=== PATIENT | female | born 1970 | race Caucasian/White ===

== ENCOUNTER → 2018-04-13 22:40 | Outpatient (CLI) | payer OTHER, SELFPAY ==
[2018-04-13 19:22] VITALS: BMI 35.0
[2018-04-13 22:56] LABS: Absolute Lymphocyte Count 4.07 X10^3/ul (0.83-4.51); Absolute Neutrophil Count 5.2 X10^3/uL (2.0-7.7); Basophil# 0.04 X10^3/uL; Basophil% 0.4 % (0-1); Hematocrit 41.1 % (37-47); Hemoglobin 13.4 g/dl (12.0-15.0); Lymphocyte # 4.07 X10^3/ul (4.0); Lymphocyte % 39.9 % (19-41); Mean Corp Hgb Conc 32.6 g/gl (32-36); Mean Corpuscular Hgb 29.5 pg (27.0-32.0); Mean Corpuscular Volume 90.3 fL (81-99); Monocyte# 0.69 X10^3/uL; Monocyte% 6.8 % (0-10); Neutrophil # 5.19 X10^3/uL (2.7-7.7); Neutrophil % 50.7 % (47-70); Platelet Count 333 K/mm3 (150-450); RBC Distribution Width CV 13.5 % (11.6-14.6); RBC Distribution Width SD 44.1 fl (35.1-43.9); Red Blood Count 4.55 M/mm3 (4.2-5.4); White Blood Count 10.2 K/mm3 (4.4-11.0)
[2018-04-13 23:02] LABS: POSITIVE COUNT NO; POSITIVE DIFFERENTIAL NO; POSITIVE MORPHOLOGY NO
[2018-04-13 23:22] LABS: ALB/GLOB Ratio 0.8 RATIO (0.9-2.4); AST(SGOT) 15 U/L (15-37); Alanine Aminotransfer ALT/SGPT 35 U/L (13-56); Albumin, Serum 3.6 g/dL (3.2-5.0); Alkaline Phosphatase 68 U/L (45-117); Anion Gap 6 (5-15); BUN 14 mg/dL (7-18); BUN/Creat Ratio 17.7 RATIO (10-20); Calcium,Total 8.8 mg/dL (8.5-10.1); Chloride 101 mmol/L (98-107); Cholesterol 224 mg/dL (200); Creatinine, Serum 0.79 mg/dL (0.55-1.02); EST Glomerular Filtration Rate 81 mL/min (>60); Est Glom Filt Rate - Afr Amer 99 mL/min (>60); Globulin 4.7 g/dL (2.2-4.2); Glucose 88 mg/dL (74-106); High Density Lipoprotein 38 mg/dL; Potassium 3.9 mmol/L (3.5-5.1); Protein, Total 8.3 g/dL (6.4-8.2); Sodium Level 135 mmol/L (136-145); Triglycerides 398 mg/dL; Very Low Density Lipoprotein 80 mg/dL (5-40)
--- OUTSIDE RECORDS SUMMARY | 2018-06-09 10:36 | XMS RPT_ITS ---
:1970 Author Organization OHIP Care Team Providers Name Role Phone Brooklynn Craft SUBWAY REPAIR SUPERVISOR-C Attending Unavailable Brooklynn Craft SUBWAY REPAIR SUPERVISOR-C Referring Unavailable Brooklynn Craft SUBWAY REPAIR SUPERVISOR-C Attending Unavailable Brooklynn Carft SUBWAY REPAIR SUPERVISOR-C Primary Care Unavailable Brooklynn Craft SUBWAY REPAIR SUPERVISOR-C Referring Unavailable PROBLEMS PROBLEMS DATE TYPE CONDITION / CODE ATTENDING STATUS SOURCE 05/03/2018 Unknown N30.90 - Cystitis, Craft, Active Calypso unspecified Brooklynn SUBWAY REPAIR SUPERVISOR-C [facility] / N30.90(ICD-10) Repository 04/14/2018 Unknown I10 - Essential Craft, Active Calypso (primary) Brooklynn SUBWAY REPAIR SUPERVISOR-C [facility] hypertension / Hospital I10(ICD-10) Repository PROCEDURES PROCEDURES No Procedure Records FoundRESULTS RESULTS OFFICE VISIT Observed: 04/30/2018 Status: F Source: [place] 5:13 PM [facility] REPOSITORY After Hours [facility] [address] [place] [address] OFFICE VISIT Date of Service: 04/30/18 MR#: [id number] Acct: [id number] Name: TRAY HUNTER Rep #: [id number] : 1970 Provider: RAMONE Craft Age/Sex: 48/F Location: [facility] Status: Signed Intake Vital Signs04/30/18 Height 5 ft 3 in 04/30/18 Weight: 198 lb Intake Visit Reasons: Urinary tract infection Allergies cephalexin monohydrate [From Keflex] Allergy (Verified 08/31/14 12:04) Itching pantoprazole sodium [From Protonix] Allergy (Verified 08/31/14 12:04) Swelling Medications magnesium 250 mg tablet 250 mg PO DAILY 04/13/18 [History Confirmed 04/13/18] valsartan 160 mg-hydrochlorothiazide 12.5 mg tablet 1 tab PO DAILY #90 tab 04/13/18 [Rx Confirmed 04/13/18] ciprofloxacin 500 mg tablet 500 mg PO BID #14 tab 04/30/18 [Rx Confirmed 04/30/18] PFSH Medical History Edema of both legs (Acute) Elevated BP without diagnosis of hypertension (Acute) Rosacea (Acute) Stasis dermatitis (Acute) T. I (Acute) endoscopy [id number] inflammation (Acute) multi nodular goiter (Acute) Surgical History History of bilateral tubal ligation (Acute) History of cholecystectomy (Acute) endoscopy 2008 (Acute) Family History Other Asthma Diabetes Heart disease Social History Smoking Status: Never smoker HPI HPI (General) HPI HPI: TRAY HUNTER, is a 48 F who presents to the office today for burning when laying down. Since Thu and worsening now Drinking lots of fluids ROS Genitourinary: Positive for burning urination, urinary frequency, Frequent nighttime urination/ nocturia, suprapubic fullness and post void dribbling Exam Const Constitutional: Yes cooperative, Yes healthy appearing Orientation: Yes alert, awake and oriented x3 Resp Effort AND Inspection: Yes normal respiratory effort Auscultation: Yes clear to auscultation bilaterally Cardio Palpitation: Yes normal PMI Rate: Yes regular rate Rhythm: Yes regular rhythm GI Inspection: Yes normal to inspection Auscultation: Yes normal bowel sounds Musc Cervical Spine: Yes cervical ROM normal Thoracic/Lumbar Spine: Yes thoracic and lumbar spine normal to inspection Skin General: no rashes or lesions noted Lesions: Yes no lesions Extrem General: Yes normal to inspection Neuro General: Yes alert and oriented x3 Psych Appearance: Positive grossly normal Mood: Positive congruent mood Affect: Positive normal affect Results [facility] Office Urine Color Yellow Last Edit by MEETA Devine on 04/30/18 17:11 Assessment AND Plan Problems 1. Dysuria R30.0 2. Cystitis N30.90 Patient Instructions Take the antibiotics till gone push the fluids cystex 1 2 x a day for 4 day Orders Orders: Medications New: Coding Level of Care Code Off vis,est,level 3 Diagnoses Dysuria R30.0 Cystitis N30.90 04/30/18 1713 <Electronically signed by Brooklynn TIM> Date Brooklynn TIM CC: Observed: 04/30/2018 Status: F Source: [place] CULTURE, URINE 4:05 PM [facility] REPOSITORY Urine Culture ORGANISM 1: Escherichia coli [place] Count >100,000 Escherichia coli: REACTION Amoxacillin/Clavulanic Acid $ 8 S Ampicillin $ >=32 R Ampicillin/Sulbactam $ 16 I Cefazolin $ <=4 S Cefepime $ <=1 S Ceftriaxone $ <=1 S Ciprofloxacin $ <=0.25 S ESBL - Ertapenim $$$ <=0.5 S Gentamicin $ <=1 S Imipenem *NF <=0.25 S Levofloxacin $ <=0.12 S Nitrofurantoin $ 64 I Piperacillin/Tazobactam $$ <=4 S Tobramycin $ <=1 S Trimethoprim/Sulfametho $ <=20 S (NF) indicates non-formulary drug at [facility]. Approval by Infectious Disease Specialist required before non-formulary drugs may be ordered and/or dispensed. Performed By: #### M100.0650 #### [facility] [place], [address] OFFICE VISIT Observed: 04/14/2018 Status: F Source: [place] 12:39 PM [facility] REPOSITORY After Hours Family [facility] [address] [place] [address] OFFICE VISIT Date of Service: 04/13/18 MR#: [id number] Acct: [id number] Name: TRAY HUNTER Rep #: [id number] : 1970 Provider: RAMONE Craft Age/Sex: 48/F Location: [facility] Status: Signed Intake Vital Signs04/13/18 Height 5 ft 3 in 04/13/18 Weight: 198 lb Intake Visit Reasons: RX REFILL Allergies cephalexin monohydrate [From Keflex] Allergy (Verified 08/31/14 12:04) Itching pantoprazole sodium [From Protonix] Allergy (Verified 08/31/14 12:04) Swelling Medications magnesium 250 mg tablet 250 mg PO DAILY 04/13/18 [History Confirmed 04/13/18] valsartan 160 mg-hydrochlorothiazide 12.5 mg tablet 1 tab PO DAILY #90 tab 04/13/18 [Rx Confirmed 04/13/18] PFSH Medical History Edema of both legs (Acute) Elevated BP without diagnosis of hypertension (Acute) Rosacea (Acute) Stasis dermatitis (Acute) T. I (Acute) endoscopy [id number] inflammation (Acute) multi nodular goiter (Acute) Surgical History History of bilateral tubal ligation (Acute) History of cholecystectomy (Acute) endoscopy 2008 (Acute) Family History Other Asthma Diabetes Heart disease Social History Smoking Status: Never smoker HPI HPI (General) HPI HPI: TRAY HUNTER, is a 48 F who presents to the office today for medication refills and labs ROS Const Constitutional: No anorexia, body ache, chills, excessive sweating, fatigue, fever(s), frequent falls, headache(s), decreased energy, malaise, night sweats, snoring, weakness, weight change, sleep problems, abnormal sleep pattern, change in appetite or other Eyes Eyes: No blurry vision, change in vision, double vision, discharge, dry eyes, bulging eyes, floaters, visual disturbances, eye pain, light sensitivity, spots in vision, tunnel vision or other ENT ENT: No headache(s), abnormal hearing, ear pain, ear discharge, ear pressure, hearing loss, tinnitus, dizziness/vertigo, balance problems, nosebleed/epistaxis, nasal congestion, nasal obstruction, nose pain, sinus pressure, sinus pain, nasal discharge, post nasal drip, facial pain, dental pain, dry mouth, difficulty swallowing, bad breath, hoarseness, lip swelling, mouth lesions, mouth pain, neck pain, sore throat, tongue swelling, throat swelling or other Resp Respiratory: No snoring, cough, change in phlegm color, chest congestion, excessive phlegm production, hemoptysis, pain on inspiration, shortness of breath, pain with cough, stridor, wheezing or other Cardio Cardiology: No excessive sweating, chest pain at rest, chest pain with exertion, leg pain with exertion, shortness of breath, dyspnea on exertion, generalized swelling, irregular heart rhythm, lightheadedness, orthopnea, radiating jaw, neck or arm pain, fast heart rate, slow heart rate, palpitations or other Gastro GI: No other, No Difficulty Swallowing, No abdominal pain, No belching, No bloating, No change in bowel habits, No change in stool character, No coffee ground emesis, No constipation, No cramping, No diarrhea, No heartburn, No feeling full early, No excessive flatus, No incontinent of stools, No Vomiting blood/hematemesis, No Blood in stool, No loose stools, No Black,tarry stools, No nausea/dyspepsia, No pain with swallowing, No vomiting, No hemorrhoids, No rectal pain Genitourinary: No urinary frequency, difficulty urinating, burning urination, painful urination, urinary urgency or blood in urine Musc Musculoskeletal: No neck pain, abnormal walking, joint pain, back pain, deformity, joint swelling, limited range of motion, loss of height, muscle cramps, muscle weakness, decreased muscle mass, body aches, numbness, radiating pain into limb, stiffness, tingling or other Skin Skin: No acne, hair loss, change in hair, nail changes, boil, change in skin color, dry skin, redness, excessive hair growth, yellowing of the skin, lesions, itching, rash, skin pain, skin ulcer, sores, skin swelling, wounds or other Breast Breast: No other Neuro Neurology: No frequent falls, headache(s), weakness, visual disturbances, abnormal hearing, abnormal walking, numbness, tingling, abnormal movements, abnormal speech, behavioral changes, confusion, unsteady gait/balance, dizziness, lack of coordination, loss of vision, memory loss, restless legs, fainting, tremor(s) or other Psych Psychiatric: No abnormal sleep pattern, No change in appetite, No behavioral changes, No confusion, No memory loss, No lack of enjoyment, No anxiety, No depression, No difficulty concentrating, No hopelessness, No irritability, No mood swings, No panic attacks, No paranoia, No Thoughts of harming yourself/Others, No hallucinations, No other Endo Endo: No excessive sweating, No fatigue, No other Aller/Imm Allergy/Immunologic: No lip swelling, tongue swelling, throat swelling, wheezing or itchy eyes Exam Const Constitutional: Yes cooperative, Yes healthy appearing Orientation: Yes alert, awake and oriented x3 HENMT Head: Yes normocephalic Ear: Yes hearing grossly normal bilaterally Neck Neck: normal visual inspection Thyroid: thyroid normal Eyes General: Yes appearance normal, both eyes and all related structures Chest Chest palpation AND inspection: Yes normal inspection of the chest Resp Effort AND Inspection: No stridor Auscultation: Yes clear to auscultation bilaterally Cardio Palpitation: Yes normal PMI Rate: Yes regular rate Rhythm: Yes regular rhythm GI Inspection: Yes normal to inspection Auscultation: Yes normal bowel sounds Rectal Exam: No hemorrhoids Musc Cervical Spine: Yes cervical ROM normal Thoracic/Lumbar Spine: Yes thoracic and lumbar spine normal to inspection Skin General: no rashes or lesions noted Lesions: Yes no lesions Extrem General: Yes normal to inspection Neuro General: Yes alert and oriented x3 Motor: No weakness Psych Appearance: Positive grossly normal Mood: Positive congruent mood Affect: Positive normal affect Assessment AND Plan Problems 1. Essential hypertension I10 2. Rosacea L71.9 Orders Orders: Medications New: Coding Level of Care Code Off vis,est,level 3 Diagnoses Essential hypertension I10 Hypertension type: essential hypertension Chasity L71.9 04/14/18 1239 <Electronically signed by Brooklynn TIM> Date Brooklynn TIM CC: CBC W/DIFF, AUTOMATED Collected: 04/13/2018 Status: F Source: [place] 8:10 PM [facility] REPOSITORY TYPE CODE TESTS RESULT OUT OF RANGE REFERENCE UNITS LAB L100.1000 4.4-11.0 K/mm3 Normal WBC 10.2 LAB L100.1200 4.2-5.4 M/mm3 Normal RBC 4.55 LAB L100.1300 12.0-15.0 g/dl Normal HGB 13.4 LAB L100.1400 37-47 % Normal HCT 41.1 LAB L100.1500 81-99 fL Normal MCV 90.3 LAB L100.1600 27.0-32.0 pg Normal MCH 29.5 LAB L100.1700 32-36 g/gl Normal MCHC 32.6 LAB L100.1810 11.6-14.6 % Normal RDW CV 13.5 LAB L100.1820 35.1-43.9 fl High RDW SD 44.1 LAB L100.1900 150-450 K/mm3 Normal PLT 333 LAB L100.2000 6.2-12.0 fl Normal MPV 9.0 LAB L100.2100 47-70 % Normal NEUT% 50.7 LAB L100.2200 19-41 % Normal LY% 39.9 LAB L100.2300 0-10 % Normal MONO% 6.8 LAB L100.2400 0-5 % Normal EO% 2.0 LAB L100.2500 0-1 % Normal BASO% 0.4 LAB L100.2550 0.0-0.9 % Normal IM GRAN % 0.200 Result Comment: IG% - Immature Granulocytes (promyelocytes, myelocytes and metamyelocytes) > 1% indicates that a LEFT SHIFT is Present. LAB L100.2620 2.0-7.7 X10 3/uL Normal Absolute Neut 5.2 LAB L100.2720 0.83-4.51 X10 3/ul Normal Absolute Lymph 4.07 Performed By: #### L100.0100, L500.4050, L500.4100 #### [facility] [address] [place], [address] COMPREHENSIVE METABOLIC Collected: 04/13/2018 Status: F Source: [place] [facility] 8:10 PM [facility] REPOSITORY TYPE CODE TESTS RESULT OUT OF RANGE REFERENCE UNITS LAB L501.0100 74-106 mg/dL Normal GLU 88 Result Comment: Please note revised GLUCOSE reference range effective 2017. LAB L501.1000 7-18 mg/dL Normal BUN 14 LAB L501.1100 0.55-1.02 mg/dL Normal CREAT,SERUM 0.79 Result Comment: The validity of the calculated GFR AND GFRAA in patients over 70 years has not been determined. Clinical correlation is essential. LAB L501.1110 >60 mL/min Normal EST GFR 81 Result Comment: Non- GFR Calc LAB L501.1115 >60 mL/min Normal EST GFR - AA 99 Result Comment: GFR Calc LAB L501.1300 10-20 RATIO Normal BUN/CRE 17.7 LAB L501.1500 6.4-8.2 g/dL High T PROT 8.3 LAB L501.1800 3.2-5.0 g/dL Normal ALB 3.6 LAB L501.1950 2.2-4.2 g/dL High GLOB 4.7 LAB L501.2000 0.9-2.4 RATIO Low A/G 0.8 LAB L501.2200 8.5-10.1 mg/dL CA Normal 8.8 LAB L501.4100 15-37 U/L Normal AST 15 LAB L501.4305 45-117 U/L Normal ALK P 68 LAB L501.4405 13-56 U/L Normal ALT 35 LAB L501.4600 0.20-1.00 mg/dL T Normal BILI 0.40 LAB L501.5300 136-145 mmol/L Low NA 135 LAB L501.5600 3.5-5.1 mmol/L K Normal 3.9 LAB L501.5900 98-107 mmol/L CL Normal 101 LAB L501.6100 21.0-32.0 mmol/L Normal CO2 28.0 LAB L501.6200 5-15 Normal GAP 6 Performed By: #### L100.0100, L500.4050, L500.4100 #### [facility] [address] [place], [place], [address] LIPID PROFILE Collected: 04/13/2018 Status: F Source: [place] 8:10 PM [facility] REPOSITORY TYPE CODE TESTS RESULT OUT OF RANGE REFERENCE UNITS LAB L501.4900 200 mg/dL High CHOL 224 Result Comment: <200 mg/dL Desirable 200-240 mg/dL Borderline >240 mg/dL High Risk LAB L501.5000 mg/dL High TRIG 398 Result Comment: The drugs N-Acetylcysteine and Metamizole may falsely depress this assay. Serum Triglycerides Reference Interval Normal <150 mg/dL Borderline high 150 - 199 mg/dL High 200 - 499 mg/dL Very High > or = 500 mg/dL LAB L501.6400 mg/dL Low HDL 38 Result Comment: The drugs N-Acetylcysteine and Metamizole may falsely depress this assay. Reference Range HDL <40 mg/dL Low HDL Cholesterol HDL >or= 60 mg/dL High HDL Cholesterol LAB L501.6500 0-130 mg/dL Normal LDL 106 LAB L501.6600 5-40 mg/dL High VLDL 80 Performed By: #### L100.0100, L500.4050, L500.4100 #### [facility] [address] [place], [place], [address] ALLERGIES ALLERGIES DATE TYPE / CODE NAME / CODE REACTION SEVERITY SOURCE 08/31/2014 Drug cephalexin Itching Unknown Calypso Allergy/416 monohydrate/[id number] Formerly [facility] 504111([facility] 830(RXNORM) [facility] ED CT) Repository 08/31/2014 Drug pantoprazole Swelling Unknown Cresencio Allergy/416 sodium/[id number](R Formerly [facility] 895742(SNOM XNORM) [facility] ED CT) Repository ENCOUNTERS ENCOUNTERS ADMIT/DISCHARGE ACCOUNT ADMITTING ENCOUNTER LOCATION SOURCE NUMBER CLASS 04/30/2018 [id number] Ambulatory Calypso Cresencio 0 [facility] ing:LABSPEC Repository 04/13/2018 [id number] Ambulatory Cresencio Calypso 9 [facility] ing:LABSPEC Repository PAYERS PAYERS ENCOUNTER GUARANTOR PAYER SUBSCRIBER SOURCE 04/30/2018 ANI [id number] Insurance:RO ABRAHAMB: [facility] RICARDA chapman Number: [id number], [place] [id number] Repository [address]Qpf: [phone]) Date:7959-03-15[phone] () 1397CD. DEJON GARCIA [id number]: 04/30/2018 Secondary NOT GIVENUNK Cresencio Insurance:SELF PAY [facility]: Effective Repository Date:2018-04-30 04/13/2018 ANI Ramos Primary ANI Dupont [id number] [facility] Number: [id number], [place] [id number] Repository [address]Hqe: ([phone]) Date:9804-01-15TB [phone] () 3673MT. DEJON GARCIA [id number]: 04/13/2018 Secondary NOT GIVENUNK Cresencio Insurance:SELF PAY [facility] Number: Effective Repository Date:2018-04-13
== END ==
PROVIDERS: Referring Provider Nurse Practitioner; Visit Provider Nurse Practitioner
DX: I10 Essential (primary) hypertension (principal)
CPT/HCPCS: 80053; 80061; 85025

== ENCOUNTER → 2018-04-30 21:09 | Outpatient (CLI) | payer OTHER, SELFPAY ==
[2018-04-30 15:47] VITALS: BMI 35.0
--- OUTSIDE RECORDS SUMMARY | 2018-08-04 07:52 | XMS RPT_ITS ---
:1970 Author Organization OHIP Care Team Providers Name Role Phone Brooklynn Craft BIOMEDICAL MANAGER-C Attending Unavailable Brooklynn Craft BIOMEDICAL MANAGER-C Referring Unavailable Brooklynn Craft BIOMEDICAL MANAGER-C Attending Unavailable Brooklynn Craft BIOMEDICAL MANAGER-C Primary Care Unavailable Brooklynn Craft BIOMEDICAL MANAGER-C Referring Unavailable PROBLEMS PROBLEMS DATE TYPE CONDITION / CODE ATTENDING STATUS SOURCE 05/03/2018 Unknown N30.90 - Cystitis, Craft, Active Cresencio unspecified Brooklynn BIOMEDICAL MANAGER-C [facility] / N30.90(ICD-10) Repository 04/14/2018 Unknown I10 - Essential Craft, Active [place] (primary) Brooklynn BIOMEDICAL MANAGER-C Community hypertension / Hospital I10(ICD-10) Repository PROCEDURES PROCEDURES No Procedure Records FoundRESULTS RESULTS OFFICE VISIT Observed: 04/30/2018 Status: F Source: [place] 5:13 PM [facility] REPOSITORY After Hours [facility] [address] [place] [address] OFFICE VISIT Date of Service: 04/30/18 MR#: [id number] Acct: [id number] Name: TRAY HUNTER Rep #: [id number] : 1970 Provider: RAMONE Craft Age/Sex: 48/F Location: [facility] Status: Signed Intake Vital Signs04/30/18 Height 5 [...] Stasis dermatitis (Acute) T. I (Acute) endoscopy 6449-0075 inflammation (Acute) multi nodular goiter (Acute) Surgical [...] congruent mood Affect: Positive normal affect Results [facility] Office Urine Color Yellow Last Edit by [...] TIM CC: Observed: 04/30/2018 Status: F Source: [place] CULTURE, URINE 4:05 PM [facility] REPOSITORY Urine Culture ORGANISM 1: Escherichia coli [place] Count >100,000 Escherichia coli: REACTION Amoxacillin/Clavulanic Acid [...] <=20 S (NF) indicates non-formulary drug at [facility]. Approval by Infectious Disease Specialist required before non-formulary drugs may be ordered and/or dispensed. Performed By: #### M100.0650 #### [facility] [place], [address] OFFICE VISIT Observed: 04/14/2018 Status: F Source: [place] 12:39 PM [facility] REPOSITORY After Hours Family [facility] [address] [place] [address] OFFICE VISIT Date of Service: 04/13/18 MR#: [id number] Acct: [id number] Name: TRAY HUNTER Rep #: [id number] : 1970 Provider: RAMONE Craft Age/Sex: 48/F Location: [facility] Status: Signed Intake Vital Signs04/13/18 Height 5 [...] Stasis dermatitis (Acute) T. I (Acute) endoscopy 3383-6742 inflammation (Acute) multi nodular goiter (Acute) Surgical [...] 04/13/2018 Status: F Source: [place] 8:10 PM [facility] REPOSITORY TYPE CODE TESTS RESULT OUT OF [...] Performed By: #### L100.0100, L500.4050, L500.4100 #### [facility] [address] [place], [address] COMPREHENSIVE METABOLIC Collected: 04/13/2018 Status: F Source: [place] [facility] 8:10 PM [facility] REPOSITORY TYPE CODE TESTS RESULT OUT OF [...] Performed By: #### L100.0100, L500.4050, L500.4100 #### [facility] [address] [place], [place], [address] LIPID PROFILE Collected: 04/13/2018 Status: F Source: [place] 8:10 PM [facility] REPOSITORY TYPE CODE TESTS RESULT OUT OF [...] Performed By: #### L100.0100, L500.4050, L500.4100 #### [facility] [address] [place], [place], [address] ALLERGIES ALLERGIES DATE TYPE / CODE NAME / CODE REACTION SEVERITY SOURCE 08/31/2014 Drug cephalexin Itching Unknown [place] Allergy/416 monohydrate/[id number] Formerly [facility] 606263([facility] 830(RXNORM) [facility] ED CT) Repository 08/31/2014 Drug pantoprazole Swelling Unknown [place] Allergy/416 sodium/[id number](R [facility] 744382(SNOM XNORM) [facility] ED CT) Repository ENCOUNTERS ENCOUNTERS ADMIT/DISCHARGE ACCOUNT ADMITTING ENCOUNTER LOCATION SOURCE NUMBER CLASS 04/30/2018 [id number] Ambulatory Cresencio [place] 0 [facility] ing:LABSPEC Repository 04/13/2018 [id number] Ambulatory [place] Cresencio 9 [facility] ing:LABSPEC Repository PAYERS PAYERS ENCOUNTER GUARANTOR PAYER SUBSCRIBER SOURCE 04/30/2018 ANI [id number] Insurance:RO ABRAHAMB: [facility] RICARDA chapman Number: [id number] [id number] Repository 8[address]Fsp: [phone]) Date:2256-99-76DV [phone] () [address] DEJON GARCIA [id number]: 04/30/2018 Secondary NOT GIVENUNK Cresencio Insurance:SELF PAY [facility] Number: Effective Repository Date:2018-04-30 04/13/2018 ANI Ramos Primary ANI Dupont [id number] [facility] Number: [id number], [place] [id number] Repository [address]Ftn: [phone]) Date:6530-94-32[phone] () [address]MT. DEJON GARCIA [id number]: 04/13/2018 Secondary NOT GIVENUNK [place] Insurance:SELF PAY [facility] Number: Effective Repository Date:2018-04-13
== END ==
PROVIDERS: Referring Provider Nurse Practitioner; Visit Provider Nurse Practitioner
DX: N30.90 Cystitis, unspecified without hematuria (principal); R30.0 Dysuria
CPT/HCPCS: 87077; 87086; 87088; 87186

== ENCOUNTER → 2018-09-21 | Outpatient (CLI) | payer OTHER, SELFPAY ==
[2018-04-30 15:47] VITALS: BMI 35.0
[2018-09-24 13:03] LABS: HPV Reflexed? NOT INDICATED
== END | disposition home or self-care (01) ==
LOC: LABSPEC 10:22
PROVIDERS: Visit Provider Obstetrics & Gynecology
DX: Z12.4 Encounter for screening for malignant neoplasm of cervix (principal)
CPT/HCPCS: 88175; G0145

== ENCOUNTER → 2018-10-14 | Outpatient (CLI) | payer OTHER, SELFPAY ==
[2018-04-30 15:47] VITALS: BMI 35.0
--- NOTE | 2018-10-14 08:44 | BI_ITS ---
MAMMOGRAPHY - BILATERAL SCREENING REASON FOR EXAM: Female, 48 years old. Routine annual screening examination. PERTINENT HISTORY: Non-contributory. TECHNIQUE: Digital bilateral breast anibal (3D mammographic acquisition) in the CC and MLO projections. 2-D mediolateral oblique (MLO) and craniocaudad (CC) views of both breasts were obtained. CAD: Full Field Digital Mammography with Computer Added Detection was performed. COMPARISON: Comparison is made with prior ocular examination dated April 10, 2004. FINDINGS: Breast Composition: The breasts are heterogeneously dense, which may obscure small masses. There are no dominant masses or suspicious calcifications. Benign appearing bilateral axillary lymph nodes. No other significant abnormalities are identified. There has been no significant change since the prior study. BI/SCREENING MAMM (CAD), BILAT IMPRESSION: Stable bilateral screening mammogram. Yearly follow-up mammogram recommended. (A) ASSESSMENT CATEGORY: BIRADS Category 2: Benign. A letter regarding these results will be sent to the patient by the facility within 30 days. Approximately 10% of breast cancers are not detected by mammography. A normal mammogram should not delay biopsy of a clinically suspicious abnormality. [id number] Electronically Signed: Edwin Lafleur, at 9:44 EDT , Service support ,
== END | disposition home or self-care (01) ==
LOC: OPBI 08:37
PROVIDERS: Family Provider Nurse Practitioner; PCP Nurse Practitioner; Referring Provider Obstetrics & Gynecology; Visit Provider Obstetrics & Gynecology
DX: Z01.419 Encounter for gynecological examination (general) (routine) without abnormal findings (principal); Z12.31 Encounter for screening mammogram for malignant neoplasm of breast
CPT/HCPCS: 77063; 77067

== ENCOUNTER → 2018-12-29 | Outpatient (CLI) | payer OTHER, SELFPAY ==
[2018-12-29 15:07] VITALS: BMI 35.0
[2018-12-29 22:59] LABS: Absolute Lymphocyte Count 3.23 X10^3/uL (0.83-4.51); Basophil# 0.06 X10^3/uL; Basophil% 0.7 % (0-1); Eosinophil# 0.12 X10^3/uL; Eosinophils% 1.3 % (0-5); Hematocrit 41.3 % (37-47); Hemoglobin 13.7 g/dL (12.0-15.0); Lymphocyte # 3.23 X10^3/ul (4.0); Lymphocyte % 36.1 % (19-41); Mean Corp Hgb Conc 33.2 g/dL (32-36); Mean Corpuscular Hgb 29.5 pg (27.0-32.0); Mean Platelet Vol. 9.5 fl (6.2-12.0); Monocyte# 0.54 X10^3/uL; NRBC Flagged by Analyzer 0 % (0-5); Neutrophil # 4.99 X10^3/uL (2.7-7.7); Neutrophil % 55.8 % (47-70); Platelet Count 307 K/mm3 (150-450); RBC Distribution Width CV 13.2 % (11.6-14.6); Red Blood Count 4.64 M/mm3 (4.2-5.4)
[2018-12-29 23:23] LABS: BUN 13 mg/dL (7-18); Creatinine, Serum 0.77 mg/dL (0.55-1.02); Glucose 88 mg/dL (74-106)
[2018-12-29 23:24] LABS: ALB/GLOB Ratio 0.9 RATIO (0.9-2.4); AST(SGOT) 20 U/L (15-37); Alanine Aminotransfer ALT/SGPT 37 U/L (13-56); Albumin, Serum 3.7 g/dL (3.2-5.0); Alkaline Phosphatase 59 U/L (45-117); Anion Gap 8 (5-15); Calcium,Total 8.8 mg/dL (8.5-10.1); Chloride 103 mmol/L (98-107); Cholesterol 210 mg/dL (200); EST Glomerular Filtration Rate 85 mL/min (>60); Est Glom Filt Rate - Afr Amer 102 mL/min (>60); Globulin 4.1 g/dL (2.2-4.2); High Density Lipoprotein 44 mg/dL; Potassium 3.6 mmol/L (3.5-5.1); Protein, Total 7.8 g/dL (6.4-8.2); Sodium Level 138 mmol/L (136-145); Triglycerides 321 mg/dL; Very Low Density Lipoprotein 64 mg/dL (5-40)
== END | disposition home or self-care (01) ==
PROVIDERS: Family Provider Nurse Practitioner; PCP Nurse Practitioner; Referring Provider Nurse Practitioner; Visit Provider Nurse Practitioner
DX: Z00.00 Encounter for general adult medical examination without abnormal findings (principal)
CPT/HCPCS: 80053; 80061; 85025

== ENCOUNTER → 2019-07-18 | Outpatient (CLI) | payer OTHER, SELFPAY ==
[2019-07-18 19:18] VITALS: BMI 36.1
[2019-07-18 21:05] LABS: Absolute Lymphocyte Count 4.28 X10^3/uL (0.83-4.51); Absolute Neutrophil Count 4.7 X10^3/uL (2.0-7.7); Basophil# 0.05 X10^3/uL; Basophil% 0.5 % (0-1); Eosinophil# 0.22 X10^3/uL; Eosinophils% 2.2 % (0-5); Hemoglobin 13.8 g/dL (12.0-15.0); Lymphocyte # 4.28 X10^3/ul (4.0); Lymphocyte % 43.6 % (19-41); Mean Corp Hgb Conc 32.9 g/dL (32-36); Mean Corpuscular Hgb 28.8 pg (27.0-32.0); Mean Corpuscular Volume 87.5 fL (81-99); Mean Platelet Vol. 8.8 fl (6.2-12.0); Monocyte# 0.55 X10^3/uL; Monocyte% 5.6 % (0-10); NRBC Flagged by Analyzer 0 % (0-5); Neutrophil # 4.68 X10^3/uL (2.7-7.7); Neutrophil % 47.7 % (47-70); Platelet Count 299 K/mm3 (150-450); RBC Distribution Width CV 13.1 % (11.6-14.6); RBC Distribution Width SD 41.7 fl (35.1-43.9); White Blood Count 9.8 K/mm3 (4.4-11.0)
[2019-07-18 21:30] LABS: ALB/GLOB Ratio 0.8 RATIO (0.9-2.4); AST(SGOT) 24 U/L (15-37); Alanine Aminotransfer ALT/SGPT 39 U/L (13-56); Albumin, Serum 3.6 g/dL (3.2-5.0); Alkaline Phosphatase 73 U/L (45-117); Amylase 33 U/L (25-115); Anion Gap 8 (5-15); BUN 8 mg/dL (7-18); BUN/Creat Ratio 10.8 RATIO (10-20); Calcium,Total 9.2 mg/dL (8.5-10.1); Chloride 101 mmol/L (98-107); Cholesterol 226 mg/dL (200); Creatinine, Serum 0.74 mg/dL (0.55-1.02); EST Glomerular Filtration Rate 88 mL/min (>60); Est Glom Filt Rate - Afr Amer 106 mL/min (>60); Globulin 4.4 g/dL (2.2-4.2); Glucose 89 mg/dL (74-106); High Density Lipoprotein 35 mg/dL; Lipase 139 U/L (73-393); Potassium 3.4 mmol/L (3.5-5.1); Sodium Level 137 mmol/L (136-145); Thyroid Stim Hormone (TSH) 3.58 uIU/mL (0.358-3.74); Triglycerides 429 mg/dL
== END | disposition home or self-care (01) ==
PROVIDERS: PCP Nurse Practitioner; Visit Provider Nurse Practitioner
DX: R07.9 Chest pain, unspecified (principal); I10 Essential (primary) hypertension; R10.13 Epigastric pain
CPT/HCPCS: 80053; 80061; 82150; 83690; 84443; 84484; 85025; 86141

== ENCOUNTER → 2020-03-30 | Outpatient (CLI) | payer OTHER, SELFPAY ==
[2019-07-22 14:50] VITALS: BMI 36.1
== END | disposition home or self-care (01) ==
LOC: LABSPEC 17:32
PROVIDERS: PCP Nurse Practitioner; Referring Provider Nurse Practitioner; Visit Provider Nurse Practitioner
DX: U07.1 COVID-19 (principal); M79.10 Myalgia, unspecified site; R50.9 Fever, unspecified
CPT/HCPCS: 87635; C9803; U0003

== ENCOUNTER → 2020-08-22 22:56 | Outpatient (CLI) | payer OTHER, SELFPAY ==
[2020-08-22 16:03] VITALS: BMI 35.9
[2020-08-22 23:04] LABS: Absolute Lymphocyte Count 3.24 X10^3/uL (0.83-4.51); Absolute Neutrophil Count 4.4 X10^3/uL (2.0-7.7); Basophil# 0.06 X10^3/uL; Basophil% 0.7 % (0-1); Eosinophil# 0.13 X10^3/uL; Eosinophils% 1.6 % (0-5); Hematocrit 44.2 % (37-47); Hemoglobin 14.9 g/dL (12.0-15.0); Lymphocyte # 3.24 X10^3/ul (4.0); Lymphocyte % 39.2 % (19-41); Mean Corp Hgb Conc 33.7 g/dL (32-36); Mean Corpuscular Hgb 30.2 pg (27.0-32.0); Mean Corpuscular Volume 89.7 fL (81-99); Mean Platelet Vol. 9.6 fl (6.2-12.0); Monocyte# 0.42 X10^3/uL; Monocyte% 5.1 % (0-10); NRBC Flagged by Analyzer 0 % (0-5); Neutrophil # 4.41 X10^3/uL (2.7-7.7); Neutrophil % 53.3 % (47-70); Platelet Count 320 K/mm3 (150-450); RBC Distribution Width CV 13.1 % (11.6-14.6); RBC Distribution Width SD 42.5 fl (35.1-43.9); Red Blood Count 4.93 M/mm3 (4.2-5.4); White Blood Count 8.3 K/mm3 (4.4-11.0)
[2020-08-22 23:26] LABS: Hemoglobin A1c 5.3 % (3.8-5.6)
[2020-08-22 23:42] LABS: ALB/GLOB Ratio 0.9 RATIO (0.9-2.4); AST(SGOT) 34 U/L (15-37); Alanine Aminotransfer ALT/SGPT 70 U/L (13-56); Albumin, Serum 4.1 g/dL (3.2-5.0); Alkaline Phosphatase 77 U/L (45-117); Anion Gap 5 (5-15); BUN 13 mg/dL (7-18); BUN/Creat Ratio 15.6 RATIO (10-20); Calcium,Total 9.6 mg/dL (8.5-10.1); Chloride 100 mmol/L (98-107); Cholesterol 292 mg/dL (200); Creatinine, Serum 0.83 mg/dL (0.55-1.02); EST Glomerular Filtration Rate 76 mL/min (>60); Est Glom Filt Rate - Afr Amer 92 mL/min (>60); Globulin 4.4 g/dL (2.2-4.2); Glucose 91 mg/dL (74-106); High Density Lipoprotein 46 mg/dL; Protein, Total 8.5 g/dL (6.4-8.2); Sodium Level 135 mmol/L (136-145); Thyroid Stim Hormone (TSH) 1.52 uIU/mL (0.358-3.74); Triglycerides 527 mg/dL
== END ==
PROVIDERS: PCP Nurse Practitioner; Referring Provider Nurse Practitioner; Visit Provider Nurse Practitioner
DX: E78.5 Hyperlipidemia, unspecified (principal); I10 Essential (primary) hypertension; R00.2 Palpitations; E88.81 Metabolic syndrome and other insulin resistance; U07.1 COVID-19
CPT/HCPCS: 80053; 80061; 83036; 84443; 85025; 86141; 86769

== ENCOUNTER → 2021-04-12 12:31 | Outpatient (CLI) | payer OTHER, SELFPAY ==
[2020-08-22 16:03] VITALS: BMI 35.9
--- NOTE | 2021-04-12 12:33 | BI_ITS ---
MAMMOGRAPHY - BILATERAL SCREENING REASON FOR EXAM: Female, 51 years old. Routine annual screening examination. PERTINENT HISTORY: Non-contributory. TECHNIQUE: Digital bilateral breast sarah (3D mammographic acquisition) in the CC and MLO projections. 2-D mediolateral oblique (MLO) and craniocaudad (CC) views of both breasts were obtained. CAD: Full Field Digital Mammography with Computer Added Detection was performed. COMPARISON: Comparison is made with prior study dated 10/14/2018. FINDINGS: Breast Composition: The breasts are heterogeneously dense, which may obscure small masses. There are no dominant masses or suspicious calcifications. Stable benign-appearing bilateral axillary lymph nodes. No other significant abnormalities are identified. There has been no significant change since the prior study. BI/SCRN MAMM (CAD)W/SARAH BILAT IMPRESSION: Stable bilateral screening mammogram. Yearly follow-up mammogram recommended. (A) ASSESSMENT CATEGORY: BIRADS Category 2: Benign. A letter regarding these results will be sent to the patient by the facility within 30 days. Approximately 10% of breast cancers are not detected by mammography. A normal mammogram should not delay biopsy of a clinically suspicious abnormality. [id number] Electronically Signed: Edwin Lafleur MD at 10:00 EST , Service support ,
== END ==
PROVIDERS: PCP Nurse Practitioner; Referring Provider Obstetrics & Gynecology; Visit Provider Obstetrics & Gynecology
DX: Z12.31 Encounter for screening mammogram for malignant neoplasm of breast (principal)
CPT/HCPCS: 77063; 77067

== ENCOUNTER 2021-07-03 21:45 | Outpatient (CLI) | payer OTHER, SELFPAY ==
[2021-07-03 22:00] LABS: Absolute Lymphocyte Count 3.57 X10^3/uL (0.83-4.51); Absolute Neutrophil Count 7.2 X10^3/uL (2.0-7.7); Basophil# 0.07 X10^3/uL; Basophil% 0.6 % (0-1); Eosinophil# 0.22 X10^3/uL; Eosinophils% 1.9 % (0-5); Hematocrit 42.4 % (37-47); Hemoglobin 14.2 g/dL (12.0-15.0); Lymphocyte # 3.57 X10^3/ul (0.83-4.51); Lymphocyte % 30.6 % (19-41); Mean Corp Hgb Conc 33.5 g/dL (32-36); Mean Corpuscular Hgb 30.3 pg (27.0-32.0); Mean Corpuscular Volume 90.4 fL (81-99); Mean Platelet Vol. 9.5 fl (6.2-12.0); Monocyte% 5.2 % (0-10); NRBC Flagged by Analyzer 0 % (0-5); Neutrophil # 7.16 X10^3/uL (2.7-7.7); Neutrophil % 61.4 % (47-70); Platelet Count 311 K/mm3 (150-450); RBC Distribution Width CV 12.7 % (11.6-14.6); RBC Distribution Width SD 41.2 fl (35.1-43.9); Red Blood Count 4.69 M/mm3 (4.2-5.4); White Blood Count 11.7 K/mm3 (4.4-11.0)
[2021-07-03 22:21] LABS: AST(SGOT) 19 U/L (15-37); Alanine Aminotransfer ALT/SGPT 45 U/L (13-56); Alkaline Phosphatase 84 U/L (45-117); Anion Gap 5 (5-15); BUN 16 mg/dL (7-18); BUN/Creat Ratio 18.7 RATIO (10-20); Calcium,Total 9.2 mg/dL (8.5-10.1); Chloride 102 mmol/L (98-107); Cholesterol 230 mg/dL (200); Creatinine, Serum 0.85 mg/dL (0.55-1.02); EST Glomerular Filtration Rate 74 mL/min (>60); Est Glom Filt Rate - Afr Amer 89 mL/min (>60); Globulin 4.2 g/dL (2.2-4.2); Glucose 99 mg/dL (74-106); High Density Lipoprotein 44 mg/dL; Protein, Total 8.2 g/dL (6.4-8.2); Sodium Level 137 mmol/L (136-145); Triglycerides 436 mg/dL
== END 2021-07-03 23:59 | disposition home or self-care (01) ==
PROVIDERS: PCP Nurse Practitioner; Referring Provider Nurse Practitioner; Visit Provider Nurse Practitioner
DX: E78.5 Hyperlipidemia, unspecified (principal); I10 Essential (primary) hypertension
CPT/HCPCS: 80053; 80061; 85025

== ENCOUNTER 2021-11-05 05:31 | Day surgery (SDC) | payer OTHER, SELFPAY ==
[2021-11-05 05:56] VITALS: BP 130/91; PULSE 79; RESP 16; TEMP 37; O2SAT 98; BMI 33.7
[2021-11-05] MEDS: Lactated Ringers 1,000 ML 15 ML IV (05:59)
--- NOTE | 2021-11-05 06:16 | HP.PCM_ITS ---
History and Physical Date of Admission: 11/05/21 Visit Reasons:?rectal pain & bleeding Chief Complaint: rectal issues Chief Learning Officer Required: No Is patient in pain?: No Allergies esomeprazole [From Nexium] Allergy (Severe, Verified 10/28/21 14:38) anaphylactic reactiongluten Allergy (Severe, Verified 07/22/19 14:44) Unknownpantoprazole sodium [From Protonix] Allergy (Severe, Verified 07/22/19 14:44) Anaphylaxissoy Allergy (Severe, Verified 07/22/19 14:44) Unknowncephalexin monohydrate [From Keflex] Allergy (Verified 07/22/19 14:44) Itching Medications magnesium 250 mg tablet 250 mg PO DAILY 04/13/18 [History Confirmed 10/28/21] epinephrine 0.3 mg/0.3 mL injection, auto-injector 0.3 mg IM ONCE PRN #1 ea 07/03/21 [Rx Confirmed 10/28/21] famotidine 40 mg tablet 40 mg PO DAILY #90 tablet 07/03/21 [Rx Confirmed 10/28/21] lorazepam 0.5 mg tablet 0.5 mg PO ONCE PRN #10 tab 07/03/21 [Rx Confirmed 10/28/21] valsartan 80 mg-hydrochlorothiazide 12.5 mg tablet 1 tab PO DAILY #90 tab 07/03/21 [Rx Confirmed 10/28/21] aspirin 81 mg tablet,delayed release 81 mg PO DAILY 10/28/21 [History Confirmed 10/28/21] omega 3-ynu-cix-fish oil 300 mg-1,000 mg capsule 1 cap PO DAILY 10/28/21 [History Confirmed 10/28/21] [facility] Medical History?(Updated 10/28/21 @ 15:53 by Rand NIX, PA-C) Chest pain Constipation Edema of both legs Elevated BP without diagnosis of hypertension Elevated high sensitivity C-reactive protein endoscopy? [id number] inflammation Epigastric abdominal pain Essential hypertension GERD (gastroesophageal reflux disease) Hyperlipidemia Hypertriglyceridemia Multinodular goiter Nausea Rectal pain Rosacea Stasis dermatitis T. I Surgical History? History of bilateral tubal ligation History of cholecystectomy History of colonoscopy History of endoscopy (~2008) History of esophagogastroduodenoscopy (EGD) (~2010) Family History? Grandmother DiabetesFather Hypertension Asthma Social History? Smoking Status:? Never smoker alcohol intake:? current alcohol intake frequency: a few times a month substance use type:? does not use caffeine:? Yes Type: coffee Number of servings: 2 HPI HPI HPI: TRAY HUNTER, is a 51 F who presents to the office today for rectal pain and constipation. Patient states she has had a new onset of constipation within the last year since menopause. Patient notes for the last 6 months she has really had to strain with bowel movements. She has also noted a rough/dry spot at the anterior aspect of the anus near the peritoneum. She notes feeling this for approximately 6 months. She notes the feeling of the skin trying to stretch in that area and not being able too. She notes attempting prunes which helped with bowel movements for a short time frame and then had to switch to Colace to assist with bowel movements. She notes if she skips a Colace tablet she will not have a bowel movement the next day. She takes one tablet nightly. She notes a past history of hemorrhoids when she was , however she denies having any problems with hemorrhoids since that time. She notes occasional rectal burning and pinpoint blood on the toilet paper. She denies family history of colon cancer. She notes trying to lose weight and has not been successful, however she notes only trying 50% of the time since April. She denies abdominal pain. She has had a previous upper and lower scope with Dr. Gutierrez over 10 years ago. At that time she was having LUQ pain and reflux symptoms. She states she was told she had irritable bowel syndrome and a small hiatal hernia by Dr. Gutierrez. She denies previous history of diverticulitis. She notes a history of reflux. Patient is currently on famotidine daily. She notes if she does not take this medication she has reflux symptoms. She was also found to have a small hiatal hernia at that time. Patient notes if she does not consistently take her reflux medication, she will have reflux symptoms. She denies shortness of breath or chest pain currently. She is having some anxiety in regards to her current symptoms and potential of having a colonoscopy. ? ROS General General: No weight change, appetite, fatigue, colon cancer, breast cancer or weakness HEENT HEENT: No difficulty swallowing, eye injury, eye surgery, swollen glands or hoarseness Endo Endocrine: No thyroid disease, diabetes mellitus, thyroid cancer, Hair loss, heat intolerance or cold intolerance Skin Skin: No rash or changing moles Breast Breast: No left breast lump, right breast lump, nipple discharge, breast pain, abnormal mammogram, abnormal US or breast enlargement Musc Musculoskeletal: No back problems, arthritis, rheumatoid arthritis, gout or joint pain Cardio Cardiovascular: Yes high blood pressure; No murmur, pacemaker, heart disease, atrial fibrillation, heart attack, heart stent, palpitations, shortness of breat with exertion or chest pain Psych Psychiatric: No depression, anxiety or hearing voices Resp Respiratory: No shortness of breath, No sleep apnea, No cough, No COPD, No asthma, No emphysema and No wheezing Gastro Gastrointestinal: No abdominal pain, No nausea or vomiting, No diarrhea, Yes constipation, Yes blood in stool, Yes acid reflux, Yes hemorrhoids, No ulcers, No gallbladder problem and No black,tarry stools Jorge Hematologic: No blood thinners, No blood disorders, No bleeding, No anemia and No blood clots Neuro Neurologic: No system reviewed and no additional complaints, except as documented, No as per HPI, No abnormal gait, No abnormal hearing, No abnormal movements, No abnormal speech, No behavioral changes, No burning sensations, No confusion, No convulsions, No disequilibrium, No dizziness, No localized weakness, No frequent falls, No headache(s), No lack of coordination, No loss of vision, No memory loss, No numbness, No other visual disturbances, No radicular pain, No restless legs, No sensory deficit, No syncope, No tingling, No tremor(s), No weakness and No other Exam Const General: cooperative, healthy appearing, comfortable and no acute distress [facility] Head: normal to inspection Eyes General: appearance normal, both eyes and all related structures Neck Neck: normal visual inspection Neck mass: No Resp Effort & Inspection: normal respiratory effort Auscultation: clear to auscultation bilaterally Cardio Rate: regular rate Rhythm: regular rhythm GI Inspection: normal to inspection and large pannus Palpation: soft and nontender Auscultation: normal bowel sounds Rectal Exam: No fissure and tenderness (very minimal at the anterior aspect) Other: Anus- externally appears to have a previous tear and what appears to be scar tissue formation. I am not appreciating a mass or skin lesion that has the appearance of skin cancer. Musc Cervical Spine: normal cervical lordosis Skin General: no rashes or lesions noted Neuro General: no focal motor deficits and CN's II-XI intact bilaterally Extrem General: normal to inspection and edema Laterality: bilateral Severity: pitting and 2+ Psych Appearance: grossly normal Affect: normal affect Assessment and Plan Assessment and Plan (1) Constipation: ?Status:?Acute ?Qualifiers: ?Constipation type:?unspecified constipation type? Qualified Code(s):? K59.00 - Constipation, unspecified ?Plan - Rand NIX PA-C: New onset of constipation. Patient very anxious to seek medical attention. I am recommending that Dr. Leonard proceed with a colonoscopy under MAC to further evaluate constipation and potential anal stricturing. With the patient's recent history of constipation, I will plan for the patient to proceed with a 2 day prep. Patient will add a bottle of magnesium citrate on day 1 of the prep and Miralax prep on day 2. Colonoscopy procedure was explained in detail including the risks and benefits. Patient has had the opportunity to ask and have questions answered. Patient will hold her fish oil and aspirin for 7 days. Patient verbally understands and agrees with the plan.? (2) GERD (gastroesophageal reflux disease): ?Status:?Acute ?Qualifiers: ?Esophagitis presence:?esophagitis presence not specified? Qualified Code(s):?K21.9 - Gastro-esophageal reflux disease without esophagitis ?Plan - BURTON FordC: Dr. Leonard will plan to perform an upper scope for reflux disease evaluating patient's hiatal hernia. Procedure details, risks and benefits have been explained to the patient. Patient has had the opportunity to ask and have questions answered. Patient verbally understands and agrees with the plan. (3) Rectal pain: ?Status:?Acute ?Plan - Rand NIX PA-C: Proceed with colonoscopy. Plan Details Other Orders: ?Orders: ? Colonoscopy Today ? ? ? EGD Today ? ? Coding Level of Care Code Off vis,est,level 4 Diagnoses Constipation? K59.00 ? ? ? Constipation type: unspecified constipation type GERD (gastroesophageal reflux disease)? K21.9 ? ? ? Esophagitis presence: esophagitis presence not specified Rectal pain? K62.89 10/28/21 1607 <Electronically signed by Rand NIX PA-C> I have re-examined the patient. There are no clinical changes since date of exam. Hubert Leonard M.D., F.A.C.S.
--- NOTE | 2021-11-05 06:30 | EGD_PTH ---
PATIENT: TRAY HUNTRE LOC: EN U#:[id number] AGE/SX: 51/F ROOM: RE11/05/[address]: Dr. Hubert Leonard MD : 1970 BED: DIS: 11/05/2021 SPEC #: [id number] RECD: 11/05/21 10:36 STATUS: STONE ESTELITA #: [id number] JERMAIN: 11/05/21 06:[address]: Hubert Leonard DEPT: SURGICAL PATHOLOGY RECD BY: Judy Ramos ENTERED: 11/05/21 12:45 SP TYPE: EGD BIOPSY OT DR: Brooklynn Craft, RAMONE-C Tissues: A - Gastric mucous membrane B - Esophagus, NOS C - Esophagus, NOS D - Cecum, NOS Procedures: Special Stain Group II Surgery Specimen Level IV Alcian Blue/PAS (control) HEADER OPERATION: [place] [place] DIAGNOSIS: Constipation, GERD, rectal pain TISSUE SUBMITTED: A ? Antrum biopsy for histo and H. pylori, B ? Distal esophagus biopsy, C ? Mid esophagus biopsy, D ? Cecal polyp biopsy MICROSCOPIC DIAGNOSIS A. Gastric antrum, biopsy: Chronic gastritis. See comment. B. Distal esophagus, biopsy: Gastroesophageal junctional mucosa with mild chronic inflammation. Focal changes of reflux. Focal goblet cell metaplasia consistent with Thomas?s esophagus. No evidence of dysplasia. See comment. C. Mid esophagus, biopsy: Fragments of benign squamous mucosa. No evidence of inflammation. D. Cecal polyp, biopsy: Tubular adenoma. AM:leyla 11/06/2021 COMMENT A. The results of immunohistochemistry for Helicobacter pylori will be reported separately ([id number]). B. Immunohistochemistry ([id number]) for P53 and Ki-67 will be performed and results will be reported separately. Alcian blue/PAS stain with matched control is used in the evaluation of the specimen. MICROSCOPIC DESCRIPTION Slides are reviewed. GROSS DESCRIPTION A - Received in fixative is one container labeled with the patient's name and designated antrum biopsy. The specimen consists of one irregular fragment of light pablo soft tissue that measures 0.6 x 0.1 x 0.1 cm. The specimen is totally submitted in one cassette. B - Received in fixative is one container labeled with the patient's name and designated distal esophagus biopsy. The specimen consists of multiple irregular fragments of light pablo soft tissue that in aggregate measure 1 x 0.5 x 0.1 cm. The specimen is totally submitted in one cassette. C - Received in fixative is one container labeled with the patient's name and designated mid esophagus biopsy. The specimen consists of one irregular fragment of light pablo soft tissue that measures 0.4 x 0.1 x 0.1 cm. The specimen is totally submitted in one cassette. D - Received in fixative is one container labeled with the patient's name and designated cecal polyp biopsy. The specimen consists of two irregular fragments of light pablo soft tissue that in aggregate measure 0.4 x 0.2 x 0.1 cm. The specimen is totally submitted in one cassette. / SJ:rg 11/05/2021 TC:5 CPT: 97529 x4, 92613
--- NOTE | 2021-11-05 06:30 | IMM_PTH ---
PATIENT: TRAY HUNTER LOC: EN U#:[id number] AGE/SX: 51/F ROOM: RE11/05/[address]: Dr. Hubert Leonard MD : 1970 BED: DIS: 11/05/2021 SPEC #: [id number] RECD: 11/05/21 11:44 STATUS: STONE RERomeo #: [id number] JERMAIN: 11/05/21 06:[address]: Hubert Leonard DEPT: IMMUNOHISTOCHEMISTRY RECD BY: Blanca Hardin ENTERED: 11/05/21 11:44 SP TYPE: IMMUNO OTHR DR: Brooklynn Craft, SALVAGE WINDER-C Tissues: A - Stomach, NOS B - Esophageal mucous membrane Procedures: H Pylori (initial) P53 (initial) KI-67 (add) PHYSICIAN & INSTITUTION [place] [id number] SPECIMEN INFORMATION: Tissue Source: A ? Antrum biopsy, B ? Distal esophagus biopsy Clinical Info: Constipation, GERD, rectal pain Specimen Number: [id number] A & B CPT code: 10153 x2, 71514 METHODOLOGY: Deparaffinized sections of prefer/formalin-fixed tissue or PAP/DQ stained slides are incubated with monoclonal/polyclonal antibodies/oligonucleotide probes. Localization is made via biotin free immunoperoxidase method. Appropriate controls are performed and reacted as expected. Results on target cell population are indicated in the following table: RESULTS: ANTIBODY / CLONE RESULT Block A H Pylori (polyclonal) negative Block B P53 (DO-7) negative Ki-67 (30-9) negative These tests were developed and their performance characteristics determined by [facility]. They may not have been cleared or approved by the U.S. Food and Drug Administration. The FDA has determined that such clearance or approval is not necessary. The above immunohistochemical/dualISH markers are ordered and reviewed by the Pathologist. INTERPRETATION: A. Antrum, biopsy: Negative for Helicobacter pylori organisms. B. Distal esophagus, biopsy: No evidence of dysplasia. AM:leyla 11/07/2021
[2021-11-05 07:05] VITALS: BP 130/83; BP 130/91; PULSE 88; RESP 15; TEMP 36.2; O2SAT 99
--- NOTE | 2021-11-05 07:05 | OP.EGD_ITS ---
Patient Name: Noemi Iglesias Procedure Date: 11/05/2021 6:17 AM Date of : 1970 Age: 51 Procedure: Upper GI endoscopy Indications: Heartburn Providers: Hubert Leonard MD Medicines: See the Anesthesia note for documentation of the administered medications Complications: No immediate complications. Procedure: Pre-Anesthesia Assessment: - Prior to the procedure, a History and Physical was performed, and patient medications and allergies were reviewed. The patient's tolerance of previous anesthesia was also reviewed. The risks and benefits of the procedure and the sedation options and risks were discussed with the patient. All questions were answered, and informed consent was obtained. Prior Anticoagulants: The patient has taken no previous anticoagulant or antiplatelet agents. ASA Grade Assessment: II - A patient with mild systemic disease. After reviewing the risks and benefits, the patient was deemed in satisfactory condition to undergo the procedure. After obtaining informed consent, the endoscope was passed under direct vision. Throughout the procedure, the patient's blood pressure, pulse, and oxygen saturations were monitored continuously. The gastroscope was introduced through the mouth, and advanced to the second part of duodenum. The upper GI endoscopy was accomplished without difficulty. The patient tolerated the procedure well. Scope In: 6:34:20 AM Scope Out: 6:39:20 AM Total Procedure Duration Time 0 hours 5 minutes 0 seconds Findings: LA Grade A (one or more mucosal breaks less than 5 mm, not extending between tops of 2 mucosal folds) esophagitis with no bleeding was found 35 cm from the incisors. Biopsies were taken with a cold forceps for histology. The mid esophagus was normal. Biopsies were taken with a cold forceps for histology. A small hiatal hernia was present. Diffuse mildly erythematous mucosa without bleeding was found in the gastric antrum. Biopsies were taken with a cold forceps for histology. The examined duodenum was normal. Impression: - LA Grade A reflux esophagitis. Biopsied. - Normal mid esophagus. Biopsied. - Small hiatal hernia. - Erythematous mucosa in the antrum. Biopsied. - Normal examined duodenum. Recommendation: - Discharge patient to home. - Resume previous diet. - Continue present medications. - Return to my office in 1 day. Procedure Code(s): --- Professional --- 49159, Esophagogastroduodenoscopy, flexible, transoral; with biopsy, single or multiple Diagnosis Code(s): --- Professional --- K21.0, Gastro-esophageal reflux disease with esophagitis K44.9, Diaphragmatic hernia without obstruction or gangrene K31.89, Other diseases of stomach and duodenum R12, Heartburn CPT copyright 2017 [employer]. All rights reserved. The codes documented in this report are preliminary and upon wireline operator review may be revised to meet current compliance requirements. Hubert Leonard MD 11/05/2021 7:05:26 AM This report has been signed electronically. Number of Addenda: 0 Note Initiated On: 11/05/2021 6:17 AM
--- NOTE | 2021-11-05 07:06 | OP.CCLET_ITS ---
11/05/2021 Brooklynn Craft NP [facility] [address] [place] [id number] Re : Upper GI endoscopy procedure for Noemi Harris Dear Ms. Craft This procedure was performed on Friday, November 05, 2021. My impressions and recommendations are as follows: Impressions : - LA Grade A reflux esophagitis. Biopsied. - Normal mid esophagus. Biopsied. - Small hiatal hernia. - Erythematous mucosa in the antrum. Biopsied. - Normal examined duodenum. Recommendations : - Discharge patient to home. - Resume previous diet. - Continue present medications. - Return to my office in 1 day. My findings are described in the full procedure note, which is enclosed. If I can be of further assistance, please feel free to contact me at Doctor phone number(s): Work: . Sincerely, Hubert Leonard MD 11/05/2021 7:05:26 AM This report has been signed electronically.
[2021-11-05 07:10] VITALS: BP 123/76; BP 130/91; PULSE 84; RESP 15; O2SAT 99
--- NOTE | 2021-11-05 07:12 | OP.COLON_ITS ---
Patient Name: Noemi Iglesias Procedure Date: 11/05/2021 6:40 AM Date of : 1970 Age: 51 Procedure: Colonoscopy Indications: Screening for colorectal malignant neoplasm Providers: Hubert Leonard MD Medicines: See the Anesthesia note for documentation of the administered medications Patient Profile: Last Colonoscopy: more than 10 years ago. Complications: No immediate complications. Procedure: Pre-Anesthesia Assessment: - Prior to the procedure, a History and Physical was performed, and patient medications and allergies were reviewed. The patient's tolerance of previous anesthesia was also reviewed. The risks and benefits of the procedure and the sedation options and risks were discussed with the patient. All questions were answered, and informed consent was obtained. Prior Anticoagulants: The patient has taken no previous anticoagulant or antiplatelet agents. ASA Grade Assessment: II - A patient with mild systemic disease. After reviewing the risks and benefits, the patient was deemed in satisfactory condition to undergo the procedure. - Prior to the procedure, a History and Physical was performed, and patient medications and allergies were reviewed. The patient's tolerance of previous anesthesia was also reviewed. The risks and benefits of the procedure and the sedation options and risks were discussed with the patient. All questions were answered, and informed consent was obtained. Prior Anticoagulants: The patient has taken no previous anticoagulant or antiplatelet agents. ASA Grade Assessment: II - A patient with mild systemic disease. After reviewing the risks and benefits, the patient was deemed in satisfactory condition to undergo the procedure. After I obtained informed consent, the scope was passed under direct vision. Throughout the procedure, the patient's blood pressure, pulse, and oxygen saturations were monitored continuously. The adult colonoscope was introduced through the anus and advanced to the cecum, identified by appendiceal orifice and ileocecal valve. The colonoscopy was performed without difficulty. The patient tolerated the procedure well. The quality of the bowel preparation was good. The ileocecal valve and the appendiceal orifice were photographed. Scope In: 6:43:33 AM Scope Withdrawal Time 0 hours 7 minutes 9 seconds Scope Out: 6:57:46 AM Total Procedure Duration Time 0 hours 14 minutes 13 seconds Findings: The digital rectal exam was abnormal. Skin lesion anterior anus, 1.5cm exophytic rough ridge at anal verge A 4 mm polyp was found in the cecum. The polyp was sessile. The polyp was removed with a cold biopsy forceps. Resection and retrieval were complete. The colon (entire examined portion) was moderately redundant. Advancing the scope required applying abdominal pressure. The exam was otherwise without abnormality. Impression: - Abnormal digital rectal exam. - No specimens collected. Recommendation: - Discharge patient to home. - Resume previous diet. - Continue present medications. - Repeat colonoscopy in 5 years for surveillance. - Return to my office in 1 day. Procedure Code(s): --- Professional --- 92008, Colonoscopy, flexible; with biopsy, single or multiple Diagnosis Code(s): --- Professional --- Z12.11, Encounter for screening for malignant neoplasm of colon K62.89, Other specified diseases of anus and rectum CPT copyright 2017 [employer]. All rights reserved. The codes documented in this report are preliminary and upon track worker review may be revised to meet current compliance requirements. Hubert Leonard MD 11/05/2021 7:12:14 AM This report has been signed electronically. Number of Addenda: 0 Note Initiated On: 11/05/2021 6:40 AM
--- NOTE | 2021-11-05 07:13 | OP.CCLET_ITS ---
11/05/2021 Brooklynn Craft NP [facility] [address] [place] [id number] Re : Colonoscopy procedure for Noemi Iglesias Dear Ms. Craft This procedure was performed on Friday, November 05, 2021. My impressions and recommendations are as follows: Impressions : - Abnormal digital rectal exam. - No specimens collected. Recommendations : - Discharge patient to home. - Resume previous diet. - Continue present medications. - Repeat colonoscopy in 5 years for surveillance. - Return to my office in 1 day. My findings are described in the full procedure note, which is enclosed. If I can be of further assistance, please feel free to contact me at Doctor phone number(s): Work: . Sincerely, Hubert Leonard MD 11/05/2021 7:12:14 AM This report has been signed electronically.
[2021-11-05 07:15] VITALS: BP 128/86; BP 130/91; PULSE 79; RESP 16; O2SAT 99
[2021-11-05 07:20] VITALS: BP 105/94; BP 130/91; PULSE 79; RESP 15; TEMP 36.2; O2SAT 99
[2021-11-05 07:40] VITALS: BP 130/91
== END 2021-11-05 08:19 | disposition home or self-care (01) ==
LOC: EN 05:33 → AC 05:33
PROVIDERS: PCP Nurse Practitioner; Referring Provider Nurse Practitioner; Visit Provider Surgery
PROC: 0DJD8ZZ Inspection of Lower Intestinal Tract, Via Natural or Artificial Opening Endoscopic (ICD-10-PCS; CPT 45378; principal; 2021-11-05 06:25)
DX: K22.70 Barrett's esophagus without dysplasia (principal); K44.9 Diaphragmatic hernia without obstruction or gangrene; K29.50 Unspecified chronic gastritis without bleeding; K21.00 Gastro-esophageal reflux disease with esophagitis, without bleeding; K31.89 Other diseases of stomach and duodenum; D12.0 Benign neoplasm of cecum; L98.9 Disorder of the skin and subcutaneous tissue, unspecified; I10 Essential (primary) hypertension; Z79.82 Long term (current) use of aspirin; Z79.899 Other long term (current) drug therapy
CPT/HCPCS: 45380; 43239; 88305; 88313; 88341; 88342; J7120; J2405

== ENCOUNTER → 2021-11-07 | Outpatient (CLI) | payer OTHER, SELFPAY ==
--- NOTE | 2021-11-06 12:50 | LES_PTH ---
PATIENT: TRAY HUNTER LOC: [facility] U#:[id number] AGE/SX: 51/F ROOM: RE11/07/[address]: Dr. Hubert Leonard MD : 1970 BED: DIS: 11/07/2021 SPEC #: [id number] RECD: 11/07/21 07:06 STATUS: STONE RE #: [id number] JERMAIN: 11/06/21 12:[address]: Hubert Leonard DEPT: SURGICAL PATHOLOGY RECD BY: Judy Ramos ENTERED: 11/07/21 11:03 SP TYPE: Lesion OTHR DR: Brooklynn Craft, [employer]-C Tissues: Skin of anus Procedures: Surgery Specimen Level IV HEADER OPERATION: Excisional biopsy of anal lesion PRE-OP DIAGNOSIS: K62.89 TISSUE SUBMITTED: Anal tissue MICROSCOPIC DIAGNOSIS Anal lesion, excisional biopsy: Acanthosis, hyperkeratosis, parakeratosis and dermal fibrosis. Negative for malignancy. See comment. LINDA:leyla 11/08/2021 COMMENT Fragments of underlying smooth muscle are also present in the specimen. Clinical correlation and appropriate follow up are necessary. MICROSCOPIC DESCRIPTION Slides are reviewed. GROSS DESCRIPTION Received in fixative is one container labeled with the patient's name and designated anal tissue. The specimen consists of two fragments of skin with underlying tissue measuring 1.3 x 0.3 x 0.3 and 1 x 0.3 x 0.2 cm. The specimen is totally submitted in one cassette. / LINDA:leyla 11/07/2021 TC:5 CPT: 35677
== END | disposition home or self-care (01) ==
LOC: LABSPEC 09:22
PROVIDERS: PCP Nurse Practitioner; Visit Provider Surgery
DX: K62.89 Other specified diseases of anus and rectum (principal)
CPT/HCPCS: 88305

== ENCOUNTER → 2022-01-21 | Outpatient (CLI) | payer OTHER, SELFPAY ==
[2022-01-29 12:03] LABS: HPV APTIMA, High Risk Negative (Negative)
== END | disposition home or self-care (01) ==
LOC: LABSPEC 14:03
PROVIDERS: PCP Nurse Practitioner; Visit Provider Obstetrics & Gynecology
DX: Z12.4 Encounter for screening for malignant neoplasm of cervix (principal)
CPT/HCPCS: 87624; 88175; G0145

== ENCOUNTER → 2022-03-26 | Outpatient (CLI) | payer OTHER, SELFPAY ==
[2022-03-26 09:43] LABS: Absolute Lymphocyte Count 2.92 X10^3/uL (0.83-4.51); Absolute Neutrophil Count 4.6 X10^3/uL (2.0-7.7); Basophil# 0.06 X10^3/uL; Basophil% 0.7 % (0-1); Eosinophil# 0.21 X10^3/uL; Eosinophils% 2.6 % (0-5); Hematocrit 42.1 % (37-47); Lymphocyte # 2.92 X10^3/ul (0.83-4.51); Lymphocyte % 35.8 % (19-41); Mean Corp Hgb Conc 33.3 g/dL (32-36); Mean Corpuscular Hgb 29.7 pg (27.0-32.0); Mean Corpuscular Volume 89.4 fL (81-99); Monocyte# 0.37 X10^3/uL; Monocyte% 4.5 % (0-10); NRBC Flagged by Analyzer 0 % (0-5); Neutrophil # 4.58 X10^3/uL (2.7-7.7); Neutrophil % 56.3 % (47-70); Platelet Count 293 K/mm3 (150-450); RBC Distribution Width SD 42.5 fl (35.1-43.9); Red Blood Count 4.71 M/mm3 (4.2-5.4); White Blood Count 8.2 K/mm3 (4.4-11.0)
[2022-03-26 10:13] LABS: ALB/GLOB Ratio 0.8 RATIO (0.9-2.4); AST(SGOT) 29 U/L (15-37); Alanine Aminotransfer ALT/SGPT 60 U/L (13-56); Albumin, Serum 3.5 g/dL (3.2-5.0); Alkaline Phosphatase 81 U/L (45-117); Anion Gap 7 (5-15); BUN 11 mg/dL (7-18); BUN/Creat Ratio 13.3 RATIO (10-20); Calcium,Total 9.4 mg/dL (8.5-10.1); Chloride 102 mmol/L (98-107); Cholesterol 238 mg/dL (200); Creatinine, Serum 0.82 mg/dL (0.55-1.02); EST Glomerular Filtration Rate 77 mL/min (>60); Est Glom Filt Rate - Afr Amer 93 mL/min (>60); Globulin 4.4 g/dL (2.2-4.2); Glucose 94 mg/dL (74-106); High Density Lipoprotein 45 mg/dL; Magnesium 2.4 mg/dL (1.6-2.6); Potassium 4.1 mmol/L (3.5-5.1); Protein, Total 7.9 g/dL (6.4-8.2); Sodium Level 138 mmol/L (136-145); Thyroid Stim Hormone (TSH) 1.44 uIU/mL (0.358-3.74); Triglycerides 480 mg/dL
== END | disposition home or self-care (01) ==
PROVIDERS: PCP Nurse Practitioner; Referring Provider Physician Assistant Medical; Visit Provider Physician Assistant Medical
DX: R00.2 Palpitations (principal); I10 Essential (primary) hypertension; E78.1 Pure hyperglyceridemia; U09.9 Post COVID-19 condition, unspecified
CPT/HCPCS: 36415; 80053; 80061; 83735; 84443; 85025

== ENCOUNTER 2022-04-16 08:26 | Outpatient (CLI) | payer OTHER, SELFPAY ==
--- NOTE | 2022-04-16 08:28 | ECHOD_ITS ---
Reason For Study: PALPITATIONS Procedure This was a 2D Doppler, Color Flow transthoracic echocardiogram. The exam was of adequate technical quality. Exam performed in department. Left Ventricle Normal LV size. Left ventricular systolic function is normal. The estimated ejection fraction is 65 %. No evidence for diastolic dysfunction. No regional wall motion abnormalities noted. Right Ventricle Normal RV size. Normal systolic function. Atria Normal left atrium. Normal right atrium. No doppler evidence for ASD. Mitral Valve There is no mitral annular calcification. Normal mitral valve. Trivial mitral valve insufficiency. Tricuspid Valve Normal tricuspid valve. Trivial tricuspid valve insufficiency. Unable to estimate RV systolic pressure due to insufficient tricuspid regurgitant envelope. Aortic Valve The aortic valve is not well visualized. Pulmonic Valve The pulmonic valve is not well visualized. Great Vessels Normal sized aortic root. Pericardium/Pleural No pericardial effusion. MMode/2D Measurements & Calculations LVIDd: 4.3 cm IVSd: 1.0 cm Ao root diam: 3.0 cm LVIDs: 2.4 cm LVPWd: 1.0 cm RVDd: 2.7 cm FS: 43.8 % LAV(MOD-bp): 41.2 ml LA A4 area: 16.5 cm2 LA dimension(2D): 4.0 cm LAV(MOD-bp) Indexed: 21.4 ml/m2 LAV(MOD-sp2): 41.1 ml LAV(MOD-sp4): 41.0 ml RA A4 area: 14.5 cm2 Time Measurements MV dec time: 0.23 sec Doppler Measurements & Calculations MV E max kentrell: 85.3 cm/sec Lat Peak E' Kentrell: 8.6 cm/sec Med Peak E' Kentrell: 8.5 cm/sec MV A max kentrell: 86.7 cm/sec E/E' lat: 9.9 E/E' med: 10.0 MV E/A: 0.98 MV dec slope: 368.7 cm/sec2 Ao V2 max: 113.4 cm/sec LV V1 max: 90.0 cm/sec Ao max P.2 mmHg LV V1 max P.2 mmHg PA V2 max: 97.3 cm/sec PA V2 mean: 69.0 cm/sec ECHO/Echo Complete Interpretation Summary Left ventricular systolic function is normal. The estimated ejection fraction is 65 %. Trivial mitral valve insufficiency. Trivial tricuspid valve insufficiency. No evidence for diastolic dysfunction. Ordering Physician: Lori Truong Referring Physician: Brooklynn Craft Performed By: Parul Swartz RDCS, RVT
== END 2022-04-16 23:59 | disposition home or self-care (01) ==
LOC: CVS 08:26
PROVIDERS: PCP Nurse Practitioner; Visit Provider Physician Assistant Medical
DX: R00.2 Palpitations (principal); U09.9 Post COVID-19 condition, unspecified; I10 Essential (primary) hypertension; E78.1 Pure hyperglyceridemia
CPT/HCPCS: 93306

== ENCOUNTER 2022-04-21 11:51 | Outpatient (CLI) | payer OTHER, SELFPAY ==
--- NOTE | 2022-04-21 11:53 | BI_ITS ---
MAMMOGRAPHY - BILATERAL SCREENING REASON FOR EXAM: Female, 52 years old. Routine annual screening examination. PERTINENT HISTORY: Aunt with breast cancer. TECHNIQUE: Digital bilateral breast sarah (3D mammographic acquisition) in the CC and MLO projections. 2-D mediolateral oblique (MLO) and craniocaudad (CC) views of both breasts were obtained. CAD: Full Field Digital Mammography with Computer Added Detection was performed. COMPARISON: Comparison is made with prior examination dated 04/12/2021 and 10/14/2018. FINDINGS: Breast Composition: The breasts are heterogeneously dense, which may obscure small masses. There is a 4.2 mm x 4 mm nodular density in the central retroareolar region of the left breast. Correlation with ultrasound is recommended. Stable benign-appearing bilateral axillary lymph nodes. No other significant abnormalities are identified. BI/SCRN MAMM (CAD)W/SARAH BILAT IMPRESSION: 4.2 mm x 4 mm well-defined nodule in the central retroareolar region of the left breast. Correlation with ultrasound is recommended. ASSESSMENT CATEGORY: BIRADS Category 0: Incomplete. Need additional imaging evaluation. A letter regarding these results will be sent to the patient by the facility within 30 days. Approximately 10% of breast cancers are not detected by mammography. A normal mammogram should not delay biopsy of a clinically suspicious abnormality. [id number] Electronically Signed: Edwin Lafleur MD at 12:57 EST ,
== END 2022-04-21 23:59 | disposition home or self-care (01) ==
LOC: OPBI 11:51
PROVIDERS: PCP Nurse Practitioner; Visit Provider Obstetrics & Gynecology
DX: Z12.31 Encounter for screening mammogram for malignant neoplasm of breast (principal); N63.42 Unspecified lump in left breast, subareolar; Z80.3 Family history of malignant neoplasm of breast
CPT/HCPCS: 77063; 77067

== ENCOUNTER 2022-04-22 07:57 | Outpatient (CLI) | payer OTHER, SELFPAY ==
--- NOTE | 2022-04-22 07:59 | US_ITS ---
STUDY: ULTRASOUND BREAST - LEFT REASON FOR EXAM: Female, 52 years old. Abnormal screening mammogram. TECHNIQUE: Axial and longitudinal images of the LEFT breast were performed with a high resolution ultrasound transducer. # OF IMAGES: 33 COMPARISON: Comparison is made with prior mammogram dated 04/21/2022. FINDINGS: LEFT Breast: There is a 5 mm x 6 mm x 4 mm cyst in the retroareolar region. Adjacent to this, there is a 4 mm x 4 mm x 3 mm cyst. US/Breast Limited Unilateral IMPRESSION: 2 small cysts are seen in the retroareolar region. ASSESSMENT CATEGORY: BIRADS Category 2: Benign. A letter regarding these results will be sent to the patient by the facility within 30 days. Electronically Signed: Edwin Lafleur MD at 11:12 EST ,
== END 2022-04-22 23:59 | disposition home or self-care (01) ==
LOC: OPUS 07:57
PROVIDERS: PCP Nurse Practitioner; Visit Provider Obstetrics & Gynecology
DX: R92.8 Other abnormal and inconclusive findings on diagnostic imaging of breast (principal); N60.02 Solitary cyst of left breast
CPT/HCPCS: 76642

== ENCOUNTER → 2022-05-06 | Outpatient (CLI) | payer OTHER, SELFPAY ==
[2022-05-06 12:17] LABS: AST(SGOT) 38 U/L (15-37); Alanine Aminotransfer ALT/SGPT 56 U/L (13-56); Albumin, Serum 3.4 g/dL (3.2-5.0); Alkaline Phosphatase 61 U/L (45-117); Bilirubin, Direct 0.12 mg/dL (0.00-0.30); Cholesterol 218 mg/dL (200); High Density Lipoprotein 43 mg/dL; Protein, Total 7.4 g/dL (6.4-8.2); Triglycerides 335 mg/dL; Very Low Density Lipoprotein 67 mg/dL (5-40)
== END | disposition home or self-care (01) ==
LOC: LAB 11:20
PROVIDERS: PCP Nurse Practitioner; Referring Provider Physician Assistant Medical; Visit Provider Physician Assistant Medical
DX: E78.1 Pure hyperglyceridemia (principal)
CPT/HCPCS: 36415; 80061; 80076

== ENCOUNTER → 2022-09-08 | Outpatient (CLI) | payer OTHER, SELFPAY ==
[2022-09-08 21:39] LABS: Absolute Lymphocyte Count 3.52 X10^3/uL (0.83-4.51); Absolute Neutrophil Count 3.8 X10^3/uL (2.0-7.7); Basophil# 0.07 X10^3/uL; Basophil% 0.9 % (0-1); Eosinophil# 0.21 X10^3/uL; Eosinophils% 2.6 % (0-5); Hematocrit 40.8 % (37-47); Hemoglobin 13.3 g/dL (12.0-15.0); Lymphocyte # 3.52 X10^3/ul (0.83-4.51); Lymphocyte % 43.1 % (19-41); Mean Corp Hgb Conc 32.6 g/dL (32-36); Mean Corpuscular Hgb 29.5 pg (27.0-32.0); Mean Corpuscular Volume 90.5 fL (81-99); Mean Platelet Vol. 9.7 fl (6.2-12.0); Monocyte# 0.54 X10^3/uL; Monocyte% 6.6 % (0-10); NRBC Flagged by Analyzer 0 % (0-5); Neutrophil # 3.82 X10^3/uL (2.7-7.7); Neutrophil % 46.7 % (47-70); Platelet Count 302 K/mm3 (150-450); RBC Distribution Width CV 13.2 % (11.6-14.6); RBC Distribution Width SD 43.4 fl (35.1-43.9); Red Blood Count 4.51 M/mm3 (4.2-5.4); White Blood Count 8.2 K/mm3 (4.4-11.0)
[2022-09-08 22:20] LABS: ALB/GLOB Ratio 0.9 RATIO (0.9-2.4); AST(SGOT) 35 U/L (15-37); Alanine Aminotransfer ALT/SGPT 61 U/L (13-56); Albumin, Serum 3.7 g/dL (3.2-5.0); Alkaline Phosphatase 71 U/L (45-117); Anion Gap 5 (5-15); BUN 11 mg/dL (7-18); BUN/Creat Ratio 10.9 RATIO (10-20); Calcium,Total 9.3 mg/dL (8.5-10.1); Chloride 105 mmol/L (98-107); Cholesterol 241 mg/dL (200); Creatinine, Serum 1.01 mg/dL (0.55-1.02); EST Glomerular Filtration Rate 61 mL/min (>60); Est Glom Filt Rate - Afr Amer 73 mL/min (>60); Globulin 4.3 g/dL (2.2-4.2); Glucose 93 mg/dL (74-106); High Density Lipoprotein 40 mg/dL; Lipase 54 U/L (13-75); Potassium 4.2 mmol/L (3.5-5.1); Sodium Level 138 mmol/L (136-145); Triglycerides 594 mg/dL
== END | disposition home or self-care (01) ==
PROVIDERS: PCP Nurse Practitioner; Visit Provider Nurse Practitioner
DX: E78.1 Pure hyperglyceridemia (principal); E78.5 Hyperlipidemia, unspecified; K21.9 Gastro-esophageal reflux disease without esophagitis
CPT/HCPCS: 80053; 80061; 83690; 85025

== ENCOUNTER → 2022-12-09 | Outpatient (CLI) | payer OTHER, SELFPAY ==
[2022-12-09 22:28] LABS: Follicle Stimulating Hormone 41.8 mIU/mL; Luteinizing Hormone 24.9 mIU/mL; Thyroid Stim Hormone (TSH) 3.17 uIU/mL (0.358-3.74)
== END | disposition home or self-care (01) ==
PROVIDERS: PCP Nurse Practitioner; Visit Provider Nurse Practitioner
DX: R51.9 Headache, unspecified (principal); R53.83 Other fatigue; R41.89 Other symptoms and signs involving cognitive functions and awareness; R00.2 Palpitations
CPT/HCPCS: 83001; 83002; 84443

== ENCOUNTER → 2023-05-25 | Outpatient (CLI) | payer OTHER, SELFPAY | END | disposition home or self-care (01) | PROVIDERS: PCP Nurse Practitioner; Visit Provider Nurse Practitioner | DX: N30.90 Cystitis, unspecified without hematuria (principal); R30.0 Dysuria | CPT/HCPCS: 87086 ==

== ENCOUNTER → 2023-08-27 | Outpatient (CLI) | payer OTHER, SELFPAY ==
[2023-08-27 21:04] LABS: Absolute Lymphocyte Count 3.89 X10^3/uL (0.83-4.51); Basophil# 0.06 X10^3/uL; Basophil% 0.7 % (0-1); Eosinophil# 0.16 X10^3/uL; Eosinophils% 1.9 % (0-5); Hematocrit 42.7 % (37-47); Hemoglobin 13.9 g/dL (12.0-15.0); Lymphocyte # 3.89 X10^3/ul (0.83-4.51); Lymphocyte % 45.4 % (19-41); Mean Corp Hgb Conc 32.6 g/dL (32-36); Mean Corpuscular Hgb 29.4 pg (27.0-32.0); Mean Corpuscular Volume 90.3 fL (81-99); Mean Platelet Vol. 9.3 fl (6.2-12.0); Monocyte# 0.48 X10^3/uL; Monocyte% 5.6 % (0-10); NRBC Flagged by Analyzer 0 % (0-5); Neutrophil # 3.95 X10^3/uL (2.7-7.7); Neutrophil % 46.2 % (47-70); Platelet Count 301 K/mm3 (150-450); RBC Distribution Width CV 13.9 % (11.6-14.6); RBC Distribution Width SD 46.3 fl (35.1-43.9); Red Blood Count 4.73 M/mm3 (4.2-5.4); White Blood Count 8.6 K/mm3 (4.4-11.0)
[2023-08-27 21:27] LABS: ALB/GLOB Ratio 0.8 RATIO (0.9-2.4); AST(SGOT) 29 U/L (15-37); Alanine Aminotransfer ALT/SGPT 52 U/L (13-56); Albumin, Serum 3.7 g/dL (3.2-5.0); Alkaline Phosphatase 69 U/L (45-117); Anion Gap 3 (5-15); BUN 16 mg/dL (7-18); BUN/Creat Ratio 17.6 RATIO (10-20); Calcium,Total 9.8 mg/dL (8.5-10.1); Chloride 102 mmol/L (98-107); Cholesterol 278 mg/dL (200); Creatinine, Serum 0.91 mg/dL (0.55-1.02); EST Glomerular Filtration Rate 68 mL/min (>60); Est Glom Filt Rate - Afr Amer 83 mL/min (>60); Globulin 4.6 g/dL (2.2-4.2); Glucose 98 mg/dL (74-106); High Density Lipoprotein 45 mg/dL; Protein, Total 8.3 g/dL (6.4-8.2); Sodium Level 136 mmol/L (136-145); Triglycerides 594 mg/dL
[2023-08-28 18:37] LABS: PTHIN 34.2 pg/mL (18.4-80.1)
== END | disposition home or self-care (01) ==
LOC: LABSPEC 20:55
PROVIDERS: PCP Nurse Practitioner; Visit Provider Nurse Practitioner
DX: E78.1 Pure hyperglyceridemia (principal); E78.5 Hyperlipidemia, unspecified; I10 Essential (primary) hypertension; R42 Dizziness and giddiness
CPT/HCPCS: 80053; 80061; 83970; 85025

== ENCOUNTER → 2024-11-02 | Outpatient (CLI) | payer OTHER, SELFPAY | END | disposition home or self-care (01) | PROVIDERS: PCP Nurse Practitioner; Referring Provider Nurse Practitioner; Visit Provider Nurse Practitioner | DX: N30.90 Cystitis, unspecified without hematuria (principal) | CPT/HCPCS: 87077; 87086; 87088; 87186 ==

== ENCOUNTER → 2024-11-09 | Outpatient (CLI) | payer OTHER, SELFPAY ==
[2024-11-09 22:30] LABS: Absolute Lymphocyte Count 3.12 X10^3/uL (0.83-4.51); Absolute Neutrophil Count 4.6 X10^3/uL (2.0-7.7); Basophil# 0.07 X10^3/uL; Basophil% 0.8 % (0-1); Eosinophil# 0.15 X10^3/uL; Eosinophils% 1.8 % (0-5); Hematocrit 40.4 % (37-47); Hemoglobin 13.6 g/dL (12.0-15.0); Lymphocyte # 3.12 X10^3/ul (0.83-4.51); Lymphocyte % 36.8 % (19-41); Mean Corp Hgb Conc 33.7 g/dL (32-36); Mean Corpuscular Hgb 29.8 pg (27.0-32.0); Mean Corpuscular Volume 88.6 fL (81-99); Mean Platelet Vol. 9.7 fl (6.2-12.0); Monocyte# 0.55 X10^3/uL; Monocyte% 6.5 % (0-10); NRBC Flagged by Analyzer 0 % (0-5); Neutrophil # 4.56 X10^3/uL (2.7-7.7); Neutrophil % 53.7 % (47-70); Platelet Count 285 K/mm3 (150-450); RBC Distribution Width CV 13.2 % (11.6-14.6); RBC Distribution Width SD 42.6 fl (35.1-43.9); Red Blood Count 4.56 M/mm3 (4.2-5.4); White Blood Count 8.5 K/mm3 (4.4-11.0)
[2024-11-09 22:49] LABS: ALB/GLOB Ratio 1.2 RATIO (0.9-2.4); AST(SGOT) 25 U/L (<=31); Alanine Aminotransfer ALT/SGPT 35 U/L (<=34); Albumin, Serum 4.1 g/dL (3.5-5.0); Alkaline Phosphatase 69 U/L (35-104); Anion Gap 13 (5-15); BUN 14 mg/dL (4-19); BUN/Creat Ratio 16.4 RATIO (10-20); Calcium,Total 9.4 mg/dL (7.6-11.0); Carbon Dioxide 22.5 mmol/L (21.0-32.0); Chloride 101 mmol/L (98-108); Cholesterol 230 mg/dL (<=200); Creatinine, Serum 0.87 mg/dL (0.70-1.20); EST Glomerular Filtration Rate 78 (>60); Free T3 2.6 pg/mL (2.18-3.98); Globulin 3.5 g/dL (2.2-4.2); Glucose 100 mg/dL (70-99); High Density Lipoprotein 43 mg/dL; Low Density Lipoprotein Calc. 81 mg/dL; Potassium 3.7 mmol/L (3.3-5.1); Protein, Total 7.6 g/dL (5.9-8.4); Sodium Level 137 mmol/L (133-145); Total Bilirubin 0.44 mg/dL (0.00-1.30); Triglycerides 532 mg/dL; Very Low Density Lipoprotein 106 mg/dL (5-40); cholesterol:hdl ratio screen 5.35
[2024-11-09 23:37] LABS: Hemoglobin A1c 5.6 % (<=5.6)
[2024-11-12 14:08] LABS: Vitamin D 1,25-Dihydroxy 31.9 pg/mL (24.8-81.5)
== END | disposition home or self-care (01) ==
PROVIDERS: PCP Nurse Practitioner; Referring Provider Nurse Practitioner; Visit Provider Nurse Practitioner
DX: Z01.419 Encounter for gynecological examination (general) (routine) without abnormal findings (principal); N30.90 Cystitis, unspecified without hematuria; I10 Essential (primary) hypertension; F41.9 Anxiety disorder, unspecified; F32.A Depression, unspecified; R53.83 Other fatigue; E03.9 Hypothyroidism, unspecified; R41.89 Other symptoms and signs involving cognitive functions and awareness; K21.9 Gastro-esophageal reflux disease without esophagitis; E78.2 Mixed hyperlipidemia; E78.1 Pure hyperglyceridemia
CPT/HCPCS: 80053; 80061; 82652; 83036; 84439; 84443; 84481; 85025; 87086; 88175; G0145

== ENCOUNTER → 2024-11-15 | Outpatient (CLI) | payer OTHER, SELFPAY ==
--- NOTE | 2024-11-15 14:30 | BI_ITS ---
EXAM: SCRN MAMM (CAD)W/SARAH BILAT DATE: 11/15/2024 CLINICAL HISTORY: F, Age 54 y/o , BREAST CANCER SCREENING TECHNIQUE: SCRN MAMM (CAD)W/SARAH BILAT COMPARISON: Prior exam(s) were compared FINDINGS: TISSUE DENSITY: The breasts are heterogeneously dense, which may obscure small masses. Bilateral Breast Mammographic Findings: No significant masses, calcifications or other abnormalities are identified. BI/SCRN MAMM (CAD)W/SARAH BILAT IMPRESSION: No mammographic evidence of malignancy in either breast. OVERALL FINAL ASSESSMENT BI-RADS 1: NEGATIVE. RECOMMEND ANNUAL MAMMOGRAPHIC SCREENING. RECOMMENDATION: Routine annual follow-up in 1 Year A letter with findings and recommendations will be mailed to the patient. Reading Location: [id number]
== END | disposition home or self-care (01) ==
LOC: OPBI 14:21
PROVIDERS: PCP Nurse Practitioner; Referring Provider Nurse Practitioner; Visit Provider Nurse Practitioner
DX: Z12.31 Encounter for screening mammogram for malignant neoplasm of breast (principal)
CPT/HCPCS: 77063; 77067